=== PATIENT | female | born 1930 | race Caucasian/White ===

== ENCOUNTER 2016-08-11 10:47 | Inpatient (IN) | payer OTHER, MEDICARE ==
[~2016-08-11] VITALS: Ht 152.4 cm; Wt 48.4 kg
--- NOTE | ~2016-08-11 | H ---
[facility] [address] [place] [address] HISTORY AND PHYSICAL Name: HOMEROPIOTR A Room #: 207-P [facility] IN M.R.#: [id number] Admission: 08/11/16 Attend Phys: Valdez Nicole MD, Discharge: 08/14/16 Date of : 28 Report #: [id number] THIS REPORT FOR: //name// For History and Physical, please see office documentation/handwritten note in the patient's medical record. <ELECTRONICALLY SIGNED> By: Valdez Nicole MD, FACC 08/16/16 0941 1035 Valdez Nicole MD, FACC /jr
[~2016-08-11 10:47] MED LIST: ALBUTEROL2.5 MG/31; AMITRIPTYLINE H50 M2 PO; AMLODIPINE BESYL5 MG PO; APAP650 PO; ASPIRIN EC81 M1 PO; BUDESONIDE0.25 MG/2 INH; BYSTOLIC 5 MG5 M1 PO; CALCIUM 1,0001 EACH PO; CALCIUM 600 +1 EAC1 PO; CELEXA 20 MG TA20 M1 PO; COLACE100 MG PO; COMBIGAN EYE DR10 ML; COSOPT EYE DROPS5 ML OP; COUMADIN 2.5MG2.5 M1 PO; COUMADIN 3 MG TA3 MG PO; DEMADEX20 MG PO; DUONEB 2.5-0.5 M3 ML INH; FOSAMAX 70 MG T70 MG PO; FUROSEMIDE 20 M20 M1 PO; HYDROCODON-ACE1 EACH PO; HYDROCODONE-AP1 EAC6 PO; KEFLEX500 MG PO; KLOR-CON 1010 MEQ PO; LASIX 20 MG TAB20 MG PO; LASIX 40 MG TAB40 M1 PO; LEVOTHYROXINE0.05 MG PO; LOPRESSOR25 PO; LOVASTAT40 PO; MORPHINE SULFAT30 M4 PO; MORPHINE SULFAT60 M1 PO; NEURONTIN600 MG PO; NORCO 5-325 TA1 EACH PO; NORVASC 2.5 MG2.5 MG PO; OXYCODON-ACETA1 EAC1 PO; PROBIOTIC1 EACH PO; PROCTOSOL; THERA-M CAPLET1 EACH PO; TRAMADOL 50 MG50 MG PO; VITAMIN D 5050000 I1 PO
[2016-08-11] MEDS ORDERED: C-10001000 MG PO (12:22)
[2016-08-11] MEDS ORDERED: LIORESAL 10 MG10 MG PO (12:24)
[2016-08-11] MEDS ORDERED: GABAPENTIN 100100 MG PO (12:34)
[2016-08-11] MEDS ORDERED: FLONASE 0.05%50 MCG NASAL (12:34)
[2016-08-11] MEDS ORDERED: HYDROXYZINE HCL25 M1 PO (12:36)
[2016-08-11] MEDS ORDERED: NUCYNTA50 MG PO (12:37)
[2016-08-11] MEDS ORDERED: MAGOX 400400 MG PO (12:37)
[2016-08-11] MEDS ORDERED: POTASSIUM20 PO (12:38)
[2016-08-11] MEDS ORDERED: PROTONIX40 M1 PO (12:39)
[2016-08-11] MEDS ORDERED: RISPERDAL0.5 MG PO (12:41)
[2016-08-11 14:54] LABS: HEMOGLOBIN 10.7 gm/dL (12.0-15.0); MCHC 33.5 g/dL (28.0-37.0); MCV 95.5 fL (80.0-100.0); PLATELET COUNT 156 thou/uL (150-400); RBC 3.35 mil/uL (4.20-5.00); RDW 19.8 % (10.5-14.5); WBC 5.6 thou/uL (4.0-11.0)
[2016-08-11 14:57] LABS: MANUAL DIFF YES
[2016-08-11 15:13] LABS: ANISOCYTOSIS 1+; TOTAL CELL COUNT 100
[2016-08-11 15:15] LABS: ALBUMIN 3.1 g/dL (3.4-5.0); CALCIUM 9.8 mg/dL (8.5-10.1); CREATININE 1.1 mg/dL (0.6-1.3); POTASSIUM 5.6 mmol/L (3.5-5.1); TOTAL BILIRUBIN 0.9 mg/dL (<0.1-1.0); TOTAL PROTEIN 7.2 g/dL (6.4-8.2)
[2016-08-11 15:16] LABS: URINE BILIRUBIN NEGATIVE (Negative); URINE BLOOD NEGATIVE (Negative); URINE GLUCOSE-RANDOM* NEGATIVE (Negative); URINE KETONES TRACE (Negative); URINE LEUKOCYTES-REFLEX TRACE (Negative); URINE PROTEIN (DIPSTICK) TRACE (Negative); URINE UROBILINOGEN 0.2 E.U./dl (0.2-1.0)
[2016-08-11 15:17] LABS: URINE COLOR DARK YELLOW
[2016-08-11 15:35] VITALS: BP 115/69
[2016-08-11 19:56] VITALS: BP 109/61
[2016-08-11 23:44] VITALS: BP 119/66
[2016-08-12 04:16] LABS: HEMATOCRIT 26.7 % (37.0-47.0); MCH 32.2 pg (26.0-34.0); MCHC 33.8 g/dL (28.0-37.0); MCV 95.4 fL (80.0-100.0); RBC 2.8 mil/uL (4.20-5.00); RDW 18.9 % (10.5-14.5); WBC 5.3 thou/uL (4.0-11.0)
[2016-08-12 04:17] VITALS: BP 130/61
[2016-08-12 04:28] LABS: APTT 54.1 Seconds (24.5-32.8)
[2016-08-12 04:40] LABS: CALCIUM 9.2 mg/dL (8.5-10.1); POTASSIUM 3.6 mmol/L (3.5-5.1)
[2016-08-12 07:43] VITALS: BP 126/67
[2016-08-12 08:41] LABS: INR 3.5
[2016-08-12 11:20] VITALS: BP 120/62
[2016-08-12 15:13] VITALS: BP 126/55
[2016-08-12 19:34] VITALS: BP 96/53
[2016-08-13 02:50] VITALS: BP 124/55
[2016-08-13 03:15] LABS: CALCIUM 8.6 mg/dL (8.5-10.1); CREATININE 0.9 mg/dL (0.6-1.3)
[2016-08-13 03:20] LABS: INR 3.4; POTASSIUM 2.5 mmol/L (3.5-5.1); PROTIME 35.5 Seconds (9.3-11.4)
[2016-08-13 08:35] VITALS: BP 114/66
[2016-08-13 11:49] VITALS: BP 100/62
[2016-08-13 16:03] VITALS: BP 101/60
[2016-08-13 19:42] VITALS: BP 109/64
[2016-08-14 03:52] LABS: HEMATOCRIT 26.8 % (37.0-47.0); HEMOGLOBIN 9.2 gm/dL (12.0-15.0); MCH 32.5 pg (26.0-34.0); MCHC 34.4 g/dL (28.0-37.0); MCV 94.5 fL (80.0-100.0); RBC 2.83 mil/uL (4.20-5.00); RDW 18.6 % (10.5-14.5)
[2016-08-14 04:11] LABS: APTT 50.8 Seconds (24.5-32.8); INR 2.4; PROTIME 25.4 Seconds (9.3-11.4)
[2016-08-14 04:18] VITALS: BP 115/67
[2016-08-14 04:18] LABS: ALBUMIN 2.5 g/dL (3.4-5.0); CALCIUM 8.6 mg/dL (8.5-10.1); CREATININE 0.8 mg/dL (0.6-1.3); TOTAL BILIRUBIN 1.2 mg/dL (<0.1-1.0)
[2016-08-14 04:19] LABS: POTASSIUM 3.8 mmol/L (3.5-5.1)
[2016-08-14] MEDS ORDERED: DEMADEX20 MG PO (07:51)
[2016-08-14] MEDS ORDERED: KLOR-CON 1010 MEQ PO (07:51)
[2016-08-14 08:34] VITALS: BP 112/53
== END 2016-08-14 15:42 | DRG 292 ==
LOC: 2N 10:47
PROVIDERS: Internal Medicine Cardiovascular Disease; Nurse Practitioner Adult Health
DX: I11.0 Hypertensive heart disease with heart failure (principal); E44.0 Moderate protein-calorie malnutrition; I50.23 Acute on chronic systolic (congestive) heart failure; D64.9 Anemia, unspecified; E78.00 Pure hypercholesterolemia, unspecified; I35.0 Nonrheumatic aortic (valve) stenosis; Z96.641 Presence of right artificial hip joint; I73.9 Peripheral vascular disease, unspecified; I42.9 Cardiomyopathy, unspecified; M19.90 Unspecified osteoarthritis, unspecified site; H40.9 Unspecified glaucoma; I48.2 Chronic atrial fibrillation; Z82.3 Family history of stroke; Z90.710 Acquired absence of both cervix and uterus; Z90.49 Acquired absence of other specified parts of digestive tract; Z88.2 Allergy status to sulfonamides; Z88.8 Allergy status to other drugs, medicaments and biological substances; Z98.41 Cataract extraction status, right eye; Z98.42 Cataract extraction status, left eye; Z68.20 Body mass index [BMI] 20.0-20.9, adult
CPT/HCPCS: 10081

== ENCOUNTER 2016-09-16 15:21 | Inpatient (IN) | payer OTHER, MEDICARE ==
[~2016-09-16] VITALS: Ht 152.4 cm; Wt 57.0 kg
--- NOTE | ~2016-09-16 | HC ---
[facility] [place] [address] CONSULTATION Name: PIOTR VALENTIN Room #: 447-P ADM IN M.R.#: [id number] Admission: 09/16/16 Attend Phys: Apolinar Reynolds DO Discharge: Date of : 29 Report #: [id number] THIS REPORT FOR: //name// CC: Mono Boo PRIMARY CARE PHYSICIAN: Darin Boo MD REFERRAL PHYSICIAN: Mono Frazier MD REASON FOR REFERRAL: Pleural effusion. HISTORY OF PRESENT ILLNESS: The patient is an 86-year-old white female who was brought to the Emergency Room following a fall. She sustained a left intertrochanteric fracture. Chest x-ray revealed bilateral pleural effusion. A pulmonary consultation was requested. The patient has known severe aortic stenosis. She states that she has been in chronic heart failure for some time. She has chronic lower extremity edema. Earlier on the day of admission, the patient stood up from the toilet. She apparently lost her balance, slipped and fell on her left hip. The patient had been residing in an independent living. She has 5 children, who lives in town. Portable chest x-ray again shows small amount of pleural effusion, slightly larger on the right. Otherwise, she denies any chest pain, productive cough. She feels weak. She denies any past history of COPD. PAST MEDICAL HISTORY: Notable for history of critical aortic stenosis, the patient was deemed not to be a surgical candidate, coronary artery disease, peripheral vascular disease, coronary artery disease, peripheral vascular disease, undergoing bilateral lower extremity angioplasty, essential hypertension, ischemic cardiomyopathy. Most recent echocardiogram showed ejection fraction approximately 45% with moderately severe mitral regurgitation, pulmonary artery pressure measuring 50 mmHg, permanent atrial fibrillation, aortic valve area was measured at 0.4 cm2. Spinal stenosis with chronic back pain. PAST SURGICAL HISTORY: Notable for partial hysterectomy, tonsillectomy, right carotid endarterectomy, right hip replacement, prior cataract surgery. ALLERGIES: SULFA, DESTINEY INHIBITORS, reactions unspecified. HOME MEDICATIONS: List are reviewed. This include Demadex, potassium supplements, Fosamax, hydrocodone, Lioresal, Neurontin, Flonase, hydroxyzine, [facility] [address] [place] [address] CONSULTATION Name: HOMEROPIOTR A Room #: 447-P [facility] IN [facility].#: [id number] Admission: 09/16/16 Attend Phys: Apolinar Reynolds DO Discharge: Date of : 29 Report #: [id number] magnesium oxide, Risperdal, Coumadin 2.5 mg once a day, Cosopt eyedrops, Lasix, melatonin, Senokot, Mucinex, doxycycline, Protonix, tapentadol, vitamin C. FAMILY HISTORY: Noncontributory. SOCIAL HISTORY: The patient is , has five grown children. She had been living in independent living. She denies any tobacco or alcohol use. REVIEW OF SYSTEMS: As mentioned above, otherwise 10-point system review negative. PHYSICAL EXAMINATION: GENERAL: She is awake, alert, and appears somewhat weak and tired. VITAL SIGNS: Temperature is 98.4 degrees Fahrenheit, pulse is 94, respiratory rate is 20, blood pressure 106/63 mmHg, saturation 94%. HEENT: Normocephalic, atraumatic. NECK: Supple, without any lymphadenopathy or thyromegaly. CHEST: Breath sounds are decreased bilaterally with a few scattered crackles. CARDIOVASCULAR: Irregularly irregular, no gallop, but 3/6 holosystolic murmur best heard at the left upper sternal border. Pulses are 2+/4+ bilaterally. BREASTS: Deferred. ABDOMEN: Soft, nontender, no organomegaly or masses felt. GENITOURINARY AND RECTAL: Deferred. EXTREMITIES: Notable for 2-3/4+ bilateral pretibial edema. No cyanosis or clubbing. LABORATORY DATA: Portable chest x-ray again shows small bilateral pleural effusion, possibly bigger on the right. Cardiomegaly is present. Acute left hip fracture. CT of the head was unremarkable other than all high convexity, right parietal encephalomalacia. CT of the cervical spine was negative for any acute fracture other than scoliosis, old T5 compression deformity. Electrolytes are normal with a creatinine of 1.0. Liver function tests mildly abnormal. WBC 7800, hemoglobin is 10.0, platelets are normal. Albumin 2.6. IMPRESSION: 1. Bilateral pleural effusion in this 86-year-old white female with history of critical aortic stenosis with chronic heart failure. Pleural effusion likely related to heart failure. With a recent fall cannot rule out traumatic pleural effusion. We will proceed with thoracentesis with an ultrasound. If pleural effusion is significant enough, thoracentesis will be recommended. 2. Recent fall with left hip fracture. 3. Critical aortic stenosis with reduced ejection fraction of 45%, pulmonary artery pressure has been moderately elevated. She is deemed not a surgical candidate. 4. Protein-calorie malnutrition, severe, albumin 2.6. 5. Permanent atrial fibrillation on chronic anticoagulation, anticoagulant has [address] [address] CONSULTATION Name: PIOTR VALENTIN Room #: 447-P ADM IN M.R.#: [id number] Admission: 09/16/16 Attend Phys: Apolinar Reynolds DO Discharge: Date of : 29 Report #: [id number] been on hold. INR today is 2.5. 6. Medical directive. She is a DNR. RECOMMENDATION AND DISCUSSION: Discussed with the granddaughter and the patient. I think it is reasonable to proceed with thoracentesis on the left based on chest x-ray findings. If pleural effusion is significant I will recommend proceeding with thoracentesis. INR is elevated today and not sure if this can be ____. This can be done at a later date. In terms of perioperative pulmonary risk for anticipated surgery, I suspect this is moderate due to advanced age along with severe comorbid conditions. The patient and granddaughter voices understanding. Plans for surgery were noted. We would recommend chest physiotherapy postoperatively. Thank you for this consultation. <ELECTRONICALLY SIGNED> By: Casey Kramer MD 09/19/16 1308 1429 0244 Casey Kramer MD /nt
--- NOTE | ~2016-09-16 | O ---
[facility] [place] [address] OPERATIVE REPORT Name: PIOTR VALENTIN Evans Room #: 447-P [facility] IN ..#: [id number] Admission: 09/16/16 Attend Phys: Apolinar Reynolds DO Discharge: Date of : 29 Report #: [id number] THIS REPORT FOR: //name// CC: Apolinar Boo DATE OF SERVICE: 09/19/2016 PREOPERATIVE DIAGNOSIS: Left hip intertrochanteric hip fracture. POSTOPERATIVE DIAGNOSIS: Left hip intertrochanteric hip fracture. PROCEDURE: Left hip intramedullary nail. SURGEON: Matt Chavez MD ANESTHESIA: General. PAD MACHINE OPERATOR: . ESTIMATED BLOOD LOSS: 50 mL. DRAINS: No drains. TOURNIQUET: No tourniquet. COMPLICATIONS: No complications. DESCRIPTION OF PROCEDURE: The patient was brought to the operating room where she was placed under general anesthesia. Once under adequate general anesthesia, she was placed onto the fracture table. The fracture was then reduced on the table and verified under fluoroscopy. The left hip was then prepped and draped in a sterile manner. Utilizing fluoroscopic guidance, a 2-cm incision proximal to the tip of the greater trochanter was made. The entrance point was then made and the guidewire placed. Subsequent placement of an 11-mm trochanteric femoral nail was then achieved. The guidewire for the lag screw was then placed in the central portion of the femoral head under fluoroscopic guidance. This was done through a separate incision as well and through a small stab incision, a lag screw was placed across the distal portion of the trochanteric femoral nail. Once complete, the wounds were irrigated copiously. Fluoroscopy was used to verify the position to be satisfactory. The wounds were irrigated copiously and closed with 2-0 Vicryl in subcutaneous tissues and antonieta for the skin. The wounds were dressed with Xeroform, 4 x 4s, and sterile soft compressive dressing was placed. There were no complications from [facility] [address] [place] [address] OPERATIVE REPORT Name: PIOTR VALENTIN Room #: 447-P [facility] IN ..#: [id number] Admission: 09/16/16 Attend Phys: Apolinar Reynolds DO Discharge: Date of : 29 Report #: [id number] the procedure. The patient tolerated the procedure well and went to the recovery room without incident. <ELECTRONICALLY SIGNED> By: Matt Chavez MD 09/20/16 0921 1142 1216 Matt Chavez MD /nt
--- NOTE | ~2016-09-16 | HC ---
[facility] [place] [address] CONSULTATION Name: PIOTR VALENTIN Evans Room #: 435-P [facility] IN .R.#: [id number] Admission: 09/16/16 Attend Phys: Mono Frazire MD Discharge: Date of : 29 Report #: [id number] THIS REPORT FOR: //name// CC: Mono Boo CHIEF COMPLAINT: Left hip fracture. HISTORY OF PRESENT ILLNESS: This is an 86-year-old female with a history of a fall yesterday, evaluated through the Emergency Room and determined to have a left hip intertrochanteric hip fracture. The patient is on Coumadin for atrial fibrillation. Her INR was 3.6 yesterday. She has a history of significant cardiac issues and followed by Dr. Nicole. PAST MEDICAL HISTORY: Significant for atrial fibrillation, hypertension, glaucoma, spinal stenosis, hemiarthroplasty of the right hip, tonsillectomy, chronic back pain, arthritis, hemorrhoids, bilateral cataract surgery in the past, aortic stenosis, arthritis and history of a right carotid endarterectomy as well. MEDICATIONS: Torsemide and potassium chloride. Medications noted on the JUL. ALLERGIES: To DESTINEY INHIBITORS and SULFAS. SOCIAL HISTORY: Negative for alcohol or tobacco use. REVIEW OF SYSTEMS: As above. PHYSICAL EXAMINATION: GENERAL: Awake and alert, in no distress. VITAL SIGNS: Notes a temperature of 37.3, blood pressure is 122/62, pulse is 85 and respiratory rate is 24. EXTREMITIES: Physical exam of the left lower extremity notes that it is shortened and externally rotated with pain with any range of motion at the hip joint. EKG notes atrial fibrillation. LABORATORY STUDIES: Notes a hemoglobin of 11.0 and an INR of 3.6. X-rays of the left hip note a left hip intertrochanteric hip fracture. IMPRESSION: Left hip intertrochanteric hip fracture. PLAN: At this point, the patient has a significant cardiac history and a history of a resent pneumonia as well as being hyper-anticoagulated. We would need her INR to come down prior to any procedure as well as for cardiology to clear her. I would be looking towards perhaps Sunday before anything surgical could happen. [facility] [address] [address] CONSULTATION Name: PIOTR VALENTIN Evans Room #: 435-P [facility] IN [facility]#: [id number] Admission: 09/16/16 Attend Phys: Mono Frazier MD Discharge: Date of : 29 Report #: [id number] Thank you for allowing me to participate in the care of this pleasant patient. <ELECTRONICALLY SIGNED> By: Matt Chavez MD 09/18/16 0935 0915 183 Matt Chavez MD /nt
--- NOTE | ~2016-09-16 | 2DMMODE ---
[facility] [address] [facility] [place] [address] 2 D/M-MODE ECHOCARDIOGRAM Name: PIOTR VALENTIN Room #: 447-P [facility] IN ..#: [id number] Admission: 09/16/16 Attend Phys: Apolinar Reynolds, Discharge: Date of : 29 Date of Service: 09/19/16 1639 Report #: [id number] THIS REPORT FOR: //name// APPROVED REPORT Study performed: 09/19/2016 14:36:22 EXAM: Comprehensive 2D, Doppler, and color-flow Echocardiogram Patient Location: Bedside Room #: 447 Blood Pressure: 134/64 mmHg HR: 96 bpm Other Information Study Quality: Good Indications Mitral Valve Disease Aortic Valve Disease Dyspnea Atrial Fibrillation Hypertension/HDD 2D Dimensions RVDd: 57.85 mm LVEF(%): 16.91 (>50%) IVSd: 10.37 (7-11mm) LVOT Diam: 17.29 (18-24mm) LVDd: 42.19 mm PWd: 10.39 (7-11mm) Ascending Ao: 28.47 (22-36mm) LVDs: 39.02 (25-40mm) Aortic Root: 26.03 mm IVC: 28.00 mm Agarwal's LVEF: 16.91 % Volumes Left Atrial Volume (Systole) Single Plane 4CH: 128.49 mL Single Plane 2CH: 115.68 mL LA ESV Index: 88.00 mL/m2 Aortic Valve AoV Peak Davion.: 5.22 m/s AO Peak Gr.: 108.98 mmHg LVOT Max P.68 mmHg AO Mean Gr.: 72.83 mmHg LVOT Mean P.98 mmHg LVOT Max V: 0.65 m/s [facility] [address] [place] [address] 2 D/M-MODE ECHOCARDIOGRAM Name: PIOTR VALENTIN Room #: 447-P [facility].#: [id number] Admission: 09/16/16 Attend Phys: Apolinar Reynolds, Discharge: Date of : 29 Date of Service: 09/19/16 1639 Report #: [id number] AO V2 VTI: 111.67 cm LVOT Mean V: 0.47 m/s NATHALY (VTI): 0.26 cm2 LVOT V1 VTI: 12.53 cm SV (LVOT): 29.41 mL Mitral Valve MV Peak Gr.: 9.31 mmHg MV Mean Gr.: 4.70 mmHg MV Decel. Time: 123.90 ms MV E Max Davion.: 1.58 m/s MV Max Davion.: 1.53 m/s MV Mean Davion.: 1.01 m/s MV VTI: 205.01 mm MVA VTI: 143.46 mm2 MV PHT: 37.62 ms MVA (PHT): 5.85 cm2 Pulmonary Valve PV Peak Davion.: 0.87 m/s PV Peak Gr.: 3.03 mmHg CO End Vmax: 2.23 m/s Tricuspid Valve TR Peak Davion.: 3.82 m/s RAP Estimate: 15.00 mmHg TR Peak Gr.: 58.98 mmHg Left Ventricle The left ventricle is normal size. Flattened septum consistent with right ventricular pressure overload. There is normal left ventricular wall thickness. Left ventricular systolic function is moderately decreased. LVEF is 40-45%. Diastolic function cannot be accurately assessed. Right Ventricle Right ventricle is dilated. Right ventricular systolic function is grossly normal. Atria Left atrium is dilated. Right atrium is dilated. Aortic Valve Aortic valve is severely calcified. Mild aortic regurgitation. Severe aortic stenosis. Mitral Valve Heavy mitral annular calcification and leaflet calcification Mild mitral regurgitation. Moderate mitral stenosis. [facility] [address] [place] [address] 2 D/M-MODE ECHOCARDIOGRAM Name: PIOTR VALENTIN Room #: 447-P [facility] IN [facility]#: [id number] Admission: 09/16/16 Attend Phys: Apolinar Reynolds, Discharge: Date of : 29 Date of Service: 09/19/16 1639 Report #: [id number] Tricuspid Valve The tricuspid valve is normal in structure. There is severe tricuspid regurgitation. The right atrial pressure is estimated at 15 mmHg. There is severe pulmonary hypertension. Pulmonic Valve The pulmonary valve is normal in structure. Mild pulmonic regurgitation. Great Vessels The aortic root is normal in size. The inferior vena cava is dilated with no inspiratory collapse. Pericardium Trace pericardial effusion. <Conclusion> Left ventricular systolic function is moderately decreased. Flattened septum consistent with right ventricular pressure overload. LVEF 40%. Both atria are dilated. Aortic valve is severely calcified. Severe aortic stenosis. Heavy mitral annular calcification and leaflet calcification Moderate mitral stenosis. Mild mitral regurgitation. There is severe pulmonary hypertension. Pulmonary artery pressure of 65mmHg. Trace pericardial effusion. <ELECTRONICALLY SIGNED> By: Enrique Verduzco MD, FACC 09/19/16 1639 1639 1639 Enrique Verduzco MD, FACC /INF
--- NOTE | ~2016-09-16 | CNG ---
[facility] [place] [address] CYTO-NONGYN REPORT PROCEDURE Name: HOMEROELYSSA A Room #: 447-P ADM IN M.R.#: [id number] Admission: 09/16/16 Date of : 29 Discharge: Report #: [id number] Path Case #: [id number] CYTOPATHOLOGY REPORT COLLECTION DATE: 09/19/2016 RECEIVED DATE: 09/19/2016 SUBMITTING PHYS: Dr. Apolinar Reynolds OTHER PHYS: Dr. Darin Boo CLINICAL HISTORY: Left hip fracture SPECIMEN(S) RECEIVED: A.Pleural fluid,Chest * * * * * * * * * * * * FINAL DIAGNOSIS: A. Chest, Pleural fluid: - No malignant cells identified. A few inflammatory cells are identified. PATHOLOGIST: Maci Hays M.D. REPORT ELECTRONICALLY SIGNED BY: Maci Hays M.D. DATE/TIME: 09/20/2016 10:27 * * * * * * * * * * * * GROSS PATHOLOGY: A. Pleural fluid,Chest: The specimen is submitted unifxed, labeled "Elyssa Junior". Received by the Cytology Department is 35 mL of clear yellow fluid. One ThinPrep slide and a cell block were prepared. (mm 09.19.2016) UM NURSE(S): BECKI [place](ASCP) INITIAL CPT CODE(S): A; 31214, 33217 Professional services performed by [facility] at [facility] [address] , [place] [address] Technical services performed by [facility] at [address] [place] [address]., [address], [place] [address]. [facility] [address] [place] [address], [address] [place] [address] PHONE: [phone] [facility] [address] [place] [address] CYTO-NONGYN REPORT PROCEDURE Name: ELYSSA JUNIOR Room #: 447-P ADM IN M.R.#: [id number] Admission: 09/16/16 Date of : 29 Discharge: Report #: [id number] Path Case #: [id number] DIRECTOR: Jeffery Goncalves M.D. * * * END OF REPORT * * *
--- NOTE | ~2016-09-16 | EKG ---
[place] [address] [address] [facility] [facility] [place] [address] ELECTROCARDIOGRAM REPORT Name: PIOTR VALENTIN Room #: 435-P ADM IN M.R.#: [id number] Admission: 09/16/16 Attend Phys: Mono Frazier MD Discharge: Date of : 29 Report #: [id number] THIS REPORT FOR: //name// [facility] ED Test Date: 2016-09-16 Test Time: 15:40:16 Pat Name: PIOTR VALENTIN Department: Room: [facility] Gender: F Business Administrator: Leilani DARDEN : 1930 Requested By: [address] Order Number: [id number] MD: Enrique Verduzco Measurements Intervals Reading Rate: 84 P: UT: QRS: -40 QRSD: 110 T: 134 QT: 389 QTc: 460 Interpretive Statements Atrial fibrillation Left anterior fascicular block Abnormal R-wave progression, late transition LVH with secondary repolarization abnormality Compared to ECG 11/18/2015 16:50:04 Premature ventricular complexes are no longer present Electronically Signed On 09-17-2016 15:07:29 CDT by Enrique Verduzco [email or web address] <ELECTRONICALLY SIGNED> By: Enrique Verduzco MD, [facility] 09/17/16 1507 1540 1540 Enrique Verduzco MD, [facility] /EPI
--- NOTE | ~2016-09-16 | HC ---
[facility] [place] [address] CONSULTATION Name: PIOTR VALENTIN Room #: 435-P ADM IN M.R.#: [id number] Admission: 09/16/16 Attend Phys: Mono Frazier MD Discharge: Date of : 29 Report #: [id number] THIS REPORT FOR: //name// CC: Mono Boo HISTORY OF PRESENT ILLNESS: The patient is an 86-year-old female well known to myself who I follow for critical aortic valve stenosis. She has been a surgical turndown both for surgical open and TAVR. Her valve is 0.4 cm2. She has permanent atrial fibrillation, hypertension, hypercholesterolemia, mild cardiomyopathy. The ejection fraction has been 45% with mildly severe MR and TR and a PA pressure in the 50s, most recently. Was diuresed and admitted here middle of July, until 5 weeks ago diuresed and back to assisted living at [facility]. Has some increasing peripheral edema and unfortunately fell and fractured her left hip. Came in with some volume overload. Has been treated with IV Lasix since last night. This has improved with regards to her peripheral edema. It looks like the CAT scans of her head and her neck were unremarkable. Her chest x-ray, small effusions, left greater than right. She has not had syncope or presyncope. She has been functional class 2-3 with this valve. So she does not appear far off her baseline. She is alert. LABORATORY WORK: Potassium 3.3, creatinine 1.1. Liver function tests: Alkaline phosphatase slightly elevated at 147. BNP was 31,895. Troponins negative. INR was 3.6 yesterday with vitamin K was given . Vitamin K this morning H 10.2 and 30.4, white count 7.0. MEDICATIONS: At home were Lasix, vitamin C, baclofen, timolol eye drops, Flonase, gabapentin, hydroxyzine, Mag-Ox; question whether she was still taking Norvasc for blood pressure, I believe that was being held. Protonix and Risperdal. PAST MEDICAL HISTORY: Positive for the critical aortic valve stenosis, surgical open and TAVR turndown, hypertension, hypercholesterolemia, right carotid endarterectomy in 2011, peripheral vascular disease with single bilateral runoff, permanent AFib anticoagulation. Partial hysterectomy, tonsillectomy, vein stripping, right carotid endarterectomy, partial right hip replacement and cataract surgery. SOCIAL HISTORY: She is . She is actually . She lives in assisted living, multiple children who are involved in her care also. No significant drugs, alcohol or tobacco. FAMILY HISTORY: Negative for premature coronary disease, except for one brother who at 58 from an infarct, no other valve issues. ALLERGIES: SULFA AND DESTINEY INHIBITORS. [address] [address] CONSULTATION Name: PIOTR VALENTIN Room #: 435-P [facility] IN M.R.#: [id number] Admission: 09/16/16 Attend Phys: Mono Frazier MD Discharge: Date of : 29 Report #: [id number] REVIEW OF SYSTEMS: Essentially negative except for the increasing edema and as stated above. PHYSICAL EXAMINATION: GENERAL: She is alert. She just wants her surgery taken care of she states. VITAL SIGNS: Blood pressure 100/50, pulse 90. HEENT: Eyes reveal xanthelasmas. There is arcus senilis. Pharynx is clear. NECK: Has tardus et parvus markedly weak and late upstrokes. This has been previously noted. LUNGS: Clear with diminished bases, left greater than right. CARDIOVASCULAR: Regular rate and rhythm S1 markedly. No second heart sound noted, harsh systolic ejection murmur at upper right sternal border. ABDOMEN: Soft, slightly protuberant, nontender. EXTREMITIES: Reveal 1-2+ edema with some mild erythema and some wrinkling, so this is actually markedly improved from last night according to my discussion with primary. Distal pulses are diminished, cannot palpate. NEUROLOGIC: Nonfocal. SKIN: Warm and dry, mild erythema of the lower extremities. No skin breakdown or ulcers. MUSCULOSKELETAL: Generalized arthritic changes. Did not ambulate, she does have some external rotation of the left hip. ASSESSMENT: 1. Left hip fracture. 2. Permanent atrial fibrillation. 3. Critical aortic valve stenosis 0.4 cm2. 4. Mild ischemic idiopathic cardiomyopathy, has been functional class 2-3 for multifactorial valve and LV. 5. Hypercholesterolemia, peripheral vascular disease. RECOMMENDATIONS AND PLAN: The patient is at extremely high risk for any kind of operation, but at this point probably not an option, not to proceed on in that respect it is at least a low risk nonvascular surgery. Keep careful eyes on her hemodynamics during anesthesia. Maintain her systolic pressure 100 and higher. However, repeat the INR and lab in the morning. Replace potassium. We will follow with you. Thank you for asking me to assist in the care of this patient. <ELECTRONICALLY SIGNED> By: Valdez Nicole MD, [facility] 09/18/16 0815 1040 2148 Valdez Nicole MD, FACC /nt
[2016-09-16 15:21] VITALS: BP 122/62
[~2016-09-16 15:21] MED LIST changes: +C-10001000 MG PO; +FLONASE 0.05%50 MCG NASAL; +GABAPENTIN 100100 MG PO; +HYDROXYZINE HCL25 M1 PO; +LIORESAL 10 MG10 MG PO; +MAGOX 400400 MG PO; +NUCYNTA50 MG PO; +POTASSIUM20 PO; +PROTONIX40 M1 PO; +RISPERDAL0.5 MG PO
[2016-09-16 16:09] LABS: MCH 31.5 pg (26.0-34.0); MCHC 33.4 g/dL (28.0-37.0); MCV 94.3 fL (80.0-100.0); PLATELET COUNT 210 thou/uL (150-400); RDW 16.7 % (10.5-14.5); WBC 9.7 thou/uL (4.0-11.0)
[2016-09-16 16:10] LABS: MANUAL DIFF YES
[2016-09-16 16:15] LABS: CALCIUM 8.4 mg/dL (8.5-10.1); CREATININE 0.9 mg/dL (0.6-1.0)
[2016-09-16 16:17] LABS: POTASSIUM 4.5 mmol/L (3.5-5.1)
[2016-09-16 16:20] LABS: ALBUMIN 2.6 g/dL (3.4-5.0); TOTAL BILIRUBIN 1.1 mg/dL (<0.1-1.0)
[2016-09-16] MEDS ORDERED: LASIX 20 MG TAB20 MG PO (16:25)
[2016-09-16 16:29] LABS: INR 3.6; PROTIME 37.5 Seconds (9.3-11.4)
[2016-09-16] MEDS ORDERED: MELATONIN5 M1 PO (16:29)
[2016-09-16] MEDS ORDERED: SENOKOT-S1 TA1 PO (16:31)
[2016-09-16] MEDS ORDERED: MUCINEX TA600 MG/TA2 PO (16:32)
[2016-09-16] MEDS ORDERED: DOXYCYCLINE 10100 MG PO (16:33)
[2016-09-16] MEDS ORDERED: PROTONIX40 M1 PO (16:39)
[2016-09-16 16:42] LABS: ABSOLUTE NEUTROPHILS 7.7 thou/uL (1.4-8.2); TOTAL CELL COUNT 100
[2016-09-16] MEDS ORDERED: NUCYNTA ER50 MG PO (16:42)
[2016-09-16 16:43] LABS: ANISOCYTOSIS 1+; OVALOCYTES FEW
[2016-09-16] MEDS ORDERED: VITAMINC500 PO (16:43)
[2016-09-16 18:25] VITALS: BP 121/61
[2016-09-16 19:45] VITALS: BP 126/70
[2016-09-17 00:30] VITALS: BP 108/52
[2016-09-17 04:13] VITALS: BP 99/51
[2016-09-17 04:27] LABS: HEMATOCRIT 30.4 % (37.0-47.0); HEMOGLOBIN 10.2 gm/dL (12.0-15.0); MCH 31.7 pg (26.0-34.0); MCHC 33.6 g/dL (28.0-37.0); MCV 94.5 fL (80.0-100.0); RBC 3.21 mil/uL (4.20-5.00); RDW 16.6 % (10.5-14.5)
[2016-09-17 04:34] LABS: CALCIUM 8.5 mg/dL (8.5-10.1); CREATININE 1.1 mg/dL (0.6-1.0)
[2016-09-17 04:35] LABS: POTASSIUM 3.3 mmol/L (3.5-5.1)
[2016-09-17 16:00] VITALS: BP 100/58
[2016-09-17 19:25] VITALS: BP 129/61
[2016-09-18 03:35] VITALS: BP 141/85
[2016-09-18 06:15] LABS: HEMATOCRIT 29.9 % (37.0-47.0); MCH 31.8 pg (26.0-34.0); MCHC 33.3 g/dL (28.0-37.0); MCV 95.5 fL (80.0-100.0); RBC 3.13 mil/uL (4.20-5.00); RDW 16.7 % (10.5-14.5); WBC 7.8 thou/uL (4.0-11.0)
[2016-09-18 06:26] LABS: INR 2.5; PROTIME 25.7 Seconds (9.3-11.4)
[2016-09-18 06:31] LABS: CALCIUM 8.4 mg/dL (8.5-10.1); MAGNESIUM 1.7 mg/dL (1.8-2.4); POTASSIUM 3.8 mmol/L (3.5-5.1)
[2016-09-18 08:00] VITALS: BP 137/77
[2016-09-18 12:00] VITALS: BP 106/63
[2016-09-18 16:00] VITALS: BP 121/48
[2016-09-18 19:30] VITALS: BP 104/55
[2016-09-19] VITALS (8 sets, daily range): BP systolic 100–134; BP diastolic 56–81
[2016-09-19 06:03] LABS: HEMATOCRIT 29.3 % (37.0-47.0); HEMOGLOBIN 9.8 gm/dL (12.0-15.0); MCH 31.8 pg (26.0-34.0); MCHC 33.4 g/dL (28.0-37.0); MCV 95.2 fL (80.0-100.0); PLATELET COUNT 212 thou/uL (150-400); RBC 3.08 mil/uL (4.20-5.00)
[2016-09-19 06:14] LABS: CALCIUM 8.5 mg/dL (8.5-10.1); MAGNESIUM 1.7 mg/dL (1.8-2.4); POTASSIUM 3.6 mmol/L (3.5-5.1)
[2016-09-19 06:25] LABS: INR 1.4; PROTIME 14.2 Seconds (9.3-11.4)
[2016-09-19 06:33] LABS: MANUAL DIFF YES
[2016-09-19 08:37] LABS: ABSOLUTE NEUTROPHILS 5.3 thou/uL (1.4-8.2); OVALOCYTES FEW; POIKILOCYTOSIS 1+; TOTAL CELL COUNT 100
[2016-09-19 10:19] LABS: BF NUCLEATED CELLS 74; BF RBC 397
[2016-09-19 10:20] LABS: CLARITY CLEAR; COLOR YELLOW; TOTAL VOLUME 60 mL
[2016-09-19 14:54] LABS: BF MACROPHAGE 68; BF NEUTROPHILS 13; MANUAL DIFF YES
[2016-09-19 14:55] LABS: BF COMMENTS 1 MONOCYTE
[2016-09-20] VITALS (20 sets, daily range): BP systolic 85–129; BP diastolic 47–75
[2016-09-20 05:43] LABS: HEMATOCRIT 27.1 % (37.0-47.0); HEMOGLOBIN 8.9 gm/dL (12.0-15.0); MCH 31.2 pg (26.0-34.0); MCHC 32.9 g/dL (28.0-37.0); RBC 2.85 mil/uL (4.20-5.00); RDW 16.7 % (10.5-14.5)
[2016-09-20 05:58] LABS: CALCIUM 8.5 mg/dL (8.5-10.1); MAGNESIUM 1.8 mg/dL (1.8-2.4); POTASSIUM 3.1 mmol/L (3.5-5.1)
[2016-09-20 15:12] LABS: BODY FLUID ALBUMIN 0.8 g/dL (()); BODY FLUID AMYLASE 7 U/L (()); BODY FLUID GLUCOSE 116 mg/dL (()); BODY FLUID LDH 30 IU/L (()); BODY FLUID PROTEIN 1.6 g/dL (())
[2016-09-21] VITALS (21 sets, daily range): BP systolic 101–129; BP diastolic 48–73
[2016-09-21 05:57] LABS: HEMATOCRIT 30.9 % (37.0-47.0); HEMOGLOBIN 10.3 gm/dL (12.0-15.0); MCH 31.8 pg (26.0-34.0); MCHC 33.5 g/dL (28.0-37.0); RBC 3.25 mil/uL (4.20-5.00); RDW 16.5 % (10.5-14.5); WBC 6.5 thou/uL (4.0-11.0)
[2016-09-21 06:03] LABS: INR 1.6; PROTIME 16.1 Seconds (9.3-11.4)
[2016-09-21 06:14] LABS: CALCIUM 8.6 mg/dL (8.5-10.1); CREATININE 0.8 mg/dL (0.6-1.0); MAGNESIUM 1.6 mg/dL (1.8-2.4); POTASSIUM 3.6 mmol/L (3.5-5.1)
[2016-09-22] VITALS (22 sets, daily range): BP systolic 83–135; BP diastolic 41–86
[2016-09-22 06:05] LABS: HEMOGLOBIN 9.5 gm/dL (12.0-15.0); MCH 31.7 pg (26.0-34.0); MCHC 33.8 g/dL (28.0-37.0); MCV 93.9 fL (80.0-100.0); PLATELET COUNT 249 thou/uL (150-400); RBC 2.99 mil/uL (4.20-5.00); RDW 16.7 % (10.5-14.5); WBC 6.4 thou/uL (4.0-11.0)
[2016-09-22 06:20] LABS: INR 1.9; PROTIME 19.4 Seconds (9.3-11.4)
[2016-09-22 06:27] LABS: CREATININE 0.6 mg/dL (0.6-1.0)
[2016-09-22 06:28] LABS: MANUAL DIFF YES
[2016-09-22 06:34] LABS: POTASSIUM 2.9 mmol/L (3.5-5.1)
[2016-09-22 08:48] LABS: ABSOLUTE NEUTROPHILS 4.9 thou/uL (1.4-8.2); ATYPICAL LYMPHS 2 %; TOTAL CELL COUNT 100
[2016-09-22 08:49] LABS: ANISOCYTOSIS 1+; OVALOCYTES FEW; POLYCHROMASIA OCCASIONAL
[2016-09-23] VITALS (16 sets, daily range): BP systolic 99–130; BP diastolic 48–73
[2016-09-23 06:16] LABS: PROTIME 20.7 Seconds (9.3-11.4)
[2016-09-24 03:34] LABS: HEMATOCRIT 29.3 % (37.0-47.0); HEMOGLOBIN 9.7 gm/dL (12.0-15.0); MCH 31.3 pg (26.0-34.0); MCV 94.7 fL (80.0-100.0); RBC 3.09 mil/uL (4.20-5.00); RDW 17.1 % (10.5-14.5); WBC 8.9 thou/uL (4.0-11.0)
[2016-09-24 03:44] VITALS: BP 101/50
[2016-09-24 03:50] LABS: INR 2.8; PROTIME 28.8 Seconds (9.3-11.4)
[2016-09-24 03:57] LABS: ALBUMIN 1.8 g/dL (3.4-5.0); CALCIUM 8.1 mg/dL (8.5-10.1); CREATININE 0.8 mg/dL (0.6-1.0); PHOSPHORUS 2.2 mg/dL (2.5-4.9); POTASSIUM 3.8 mmol/L (3.5-5.1)
[2016-09-24 08:00] VITALS: BP 101/66
[2016-09-24 12:00] VITALS: BP 121/58
[2016-09-24 16:00] VITALS: BP 109/65
[2016-09-24 20:28] VITALS: BP 104/52
[2016-09-25 03:46] VITALS: BP 97/61
[2016-09-25 07:08] LABS: HEMATOCRIT 30.3 % (37.0-47.0); MCH 31.3 pg (26.0-34.0); MCHC 33.1 g/dL (28.0-37.0); MCV 94.8 fL (80.0-100.0); RBC 3.19 mil/uL (4.20-5.00); RDW 17.5 % (10.5-14.5); WBC 11.3 thou/uL (4.0-11.0)
[2016-09-25 07:21] LABS: INR 3.5; PROTIME 36.7 Seconds (9.3-11.4)
[2016-09-25 07:27] LABS: CALCIUM 8.1 mg/dL (8.5-10.1); CREATININE 0.8 mg/dL (0.6-1.0); PHOSPHORUS 3.1 mg/dL (2.5-4.9); POTASSIUM 3.7 mmol/L (3.5-5.1)
[2016-09-25 07:34] VITALS: BP 118/48
[2016-09-25 16:10] VITALS: BP 119/60
[2016-09-25 20:15] VITALS: BP 102/52
[2016-09-26] VITALS (7 sets, daily range): BP systolic 90–127; BP diastolic 51–71
[2016-09-26 06:19] LABS: PROTIME 41.4 Seconds (9.3-11.4)
[2016-09-27 05:00] VITALS: BP 103/48
[2016-09-27 06:02] LABS: PROTIME 14.1 Seconds (9.3-11.4)
[2016-09-27 06:03] LABS: ALBUMIN 1.8 g/dL (3.4-5.0); CALCIUM 8.2 mg/dL (8.5-10.1); CREATININE 0.8 mg/dL (0.6-1.0); MAGNESIUM 1.7 mg/dL (1.8-2.4); PHOSPHORUS 2.4 mg/dL (2.5-4.9)
[2016-09-27 06:07] LABS: INR 1.4
[2016-09-27 08:00] VITALS: BP 116/57
[2016-09-27] MEDS ORDERED: HYDROCODON-ACE1 EAC7 PO (11:41)
[2016-09-27] MEDS ORDERED: COUMADIN 2.5MG2.5 M1 PO (11:53)
[2016-09-27] MEDS ORDERED: ENOXAPARIN60 MG/0.1 SUBQ (11:54)
[2016-09-27 12:00] VITALS: BP 109/47
== END 2016-09-27 14:31 | DRG 480 ==
LOC: ER 15:21 → EROBS 17:36 → 4S 17:36
PROVIDERS: Family Medicine; Hospitalist; Internal Medicine; Internal Medicine Cardiovascular Disease; Orthopaedic Surgery Foot and Ankle Surgery; Physician Assistant
PROC: 0QS736Z Reposition Left Upper Femur with Intramedullary Internal Fixation Device, Percutaneous Approach (ICD-10-PCS; principal; 2016-09-19)
PROC: 0W993ZZ Drainage of Right Pleural Cavity, Percutaneous Approach (ICD-10-PCS; 2016-09-19)
PROC: BB4BZZZ Ultrasonography of Pleura (ICD-10-PCS; 2016-09-19)
DX: S72.142A Displaced intertrochanteric fracture of left femur, initial encounter for closed fracture (principal); E43 Unspecified severe protein-calorie malnutrition; J96.01 Acute respiratory failure with hypoxia; I50.43 Acute on chronic combined systolic (congestive) and diastolic (congestive) heart failure; J90 Pleural effusion, not elsewhere classified; D62 Acute posthemorrhagic anemia; H40.9 Unspecified glaucoma; M48.00 Spinal stenosis, site unspecified; Z96.641 Presence of right artificial hip joint; G89.29 Other chronic pain; M54.9 Dorsalgia, unspecified; M19.90 Unspecified osteoarthritis, unspecified site; I35.0 Nonrheumatic aortic (valve) stenosis; I73.9 Peripheral vascular disease, unspecified; S09.90XA Unspecified injury of head, initial encounter; I11.0 Hypertensive heart disease with heart failure; I48.2 Chronic atrial fibrillation; E78.00 Pure hypercholesterolemia, unspecified; I25.5 Ischemic cardiomyopathy; Z66 Do not resuscitate; E87.6 Hypokalemia; I95.9 Hypotension, unspecified; I27.2 Other secondary pulmonary hypertension; L89.159 Pressure ulcer of sacral region, unspecified stage; W18.39XA Other fall on same level, initial encounter; Y93.89 Activity, other specified; Y92.89 Other specified places as the place of occurrence of the external cause; Y99.8 Other external cause status; Z90.711 Acquired absence of uterus with remaining cervical stump; Z98.42 Cataract extraction status, left eye; Z98.41 Cataract extraction status, right eye; Z88.2 Allergy status to sulfonamides; Z98.49 Cataract extraction status, unspecified eye; Z68.24 Body mass index [BMI] 24.0-24.9, adult; Z79.01 Long term (current) use of anticoagulants; Z82.49 Family history of ischemic heart disease and other diseases of the circulatory system; Z79.899 Other long term (current) drug therapy
CPT/HCPCS: 10100; 50010; 50101; 50133; 50386; 50635; 51412; 51538; 51817; 52146; 55445; 56524; 57092; 62110; 62900; 70005